=== PATIENT | male | born 1965 | race Caucasian/White ===

== ENCOUNTER 2016-10-13 16:22 | Outpatient (CLI) | payer MEDICARE ==
--- NOTE | 2016-10-13 19:47 | RAD ---
CHEST TWO VIEWS 10/13/16 Comparison is made with the 12/19/15 study. The heart is upper normal in size but no different than before. The lungs are clear. There is no sig n of pneumonia or pleural effusion. The trachea is midline and the mediastinum was unremarkable in appearance. The bony structures showed no acute change. IMPRESSION: Stable exam showing no acute findings. POS: HOME
== END 2016-10-13 16:23 | disposition home or self-care (01) ==
LOC: BURRAD 16:22
PROVIDERS: ATTEND Family Medicine
DX: G93.3 Postviral and related fatigue syndromes (principal)
CPT/HCPCS: 71020

== ENCOUNTER 2017-02-08 16:34 | Outpatient (CLI) | payer MEDICARE ==
[2017-02-08 17:30] LABS: #Basophils 0.1 thou/uL (0.0-0.2); #Eosinphils 0.3 thou/uL (0.0-0.7); #Lymphocytes 2.6 thou/uL (1.20-3.40); #Monocytes 0.8 thou/uL (0.11-0.59); #Neutrophils 8.8 thou/uL (1.40-6.50); %Eosinophils 2.6 % (0.0-10.0); %Lymphocytes 20.8 % (21.0-51.0); %Neutrophils 69.7 % (42.0-75.0); Hemoglobin 14.7 g/dL (14.0-18.0); Mean Corpuscular HGB CONC 33.5 g/dL (32.0-36.0); Mean Corpuscular Hemoglobin 29.9 pg (27.0-31.0); Mean Corpuscular Volume 89.2 fl (80.0-94.0); Mean Platelet Volume 7.6 fL (7.4-10.4); Platelet Count 332 thou/uL (130-400); RBC Distribution Width 12.6 % (11.5-14.5); Red Blood Cell (RBC) Count 4.92 mill/uL (4.70-6.10); White Blood Cell (WBC) Count 12.6 thou/uL (4.8-10.8)
[2017-02-08 17:46] LABS: Hemoglobin A1c 7.7 % (4.0-6.0)
[2017-02-08 17:50] LABS: ALT (SGPT) 24 U/L (8-55); AST (SGOT) 16 U/L (5-34); Albumin 4.5 g/dL (3.5-5.0); Alkaline Phosphatase 66 U/L (40-150); Anion Gap 16 mmol/L (10-20); BUN (Urea Nitrogen) 17 mg/dL (8.4-25.7); Bilirubin, Total 0.4 mg/dL (0.2-1.2); Calc. Creatinine Clearance 0 mL/min (70-130); Calcium 10.1 mg/dL (7.8-10.44); Carbon Dioxide 25 mmol/L (22-29); Chloride 100 mmol/L (98-107); Estimated GFR-MDRD Greater than 90; Glucose 113 mg/dL (70-105); Potassium 4.2 mmol/L (3.5-5.1); Protein, Total 7.5 g/dL (6.0-8.3); Sodium 137 mmol/L (136-145)
[2017-02-08 18:07] LABS: PSA-Asymptomatic (SCREENING) 0.37 ng/mL (0-4.0); Thyroid Stimulating Hormone 1.2481 uIU/mL (0.35-4.94)
[2017-02-09 18:46] LABS: Creatinine, Urine 58.58 mg/dL (63-166); Microalbumin Urine 5.2 mg/dL (0.5-50.0); Microalbumin/Creat Ratio 88.8 mg/g (Less than 30)
== END 2017-02-08 16:35 | disposition home or self-care (01) ==
LOC: HPCALD 16:34
PROVIDERS: ATTEND Family Medicine
DX: Z12.5 Encounter for screening for malignant neoplasm of prostate (principal); E11.9 Type 2 diabetes mellitus without complications; I10 Essential (primary) hypertension
CPT/HCPCS: 36415; 80053; 82043; 83036; 84443; 85025; G0103

== ENCOUNTER 2017-04-10 16:13 | Outpatient (CLI) | payer MEDICARE ==
[2017-04-10 18:26] LABS: Anion Gap 19 mmol/L (10-20); BUN (Urea Nitrogen) 20 mg/dL (8.4-25.7); Calc. Creatinine Clearance 0 mL/min (70-130); Calcium 9.8 mg/dL (7.8-10.44); Carbon Dioxide 24 mmol/L (22-29); Chloride 101 mmol/L (98-107); Estimated GFR-MDRD Greater than 90; Glucose 108 mg/dL (70-105); Potassium 4.5 mmol/L (3.5-5.1); Sodium 139 mmol/L (136-145)
== END 2017-04-10 16:14 | disposition home or self-care (01) ==
LOC: HPCALD 16:13
PROVIDERS: ATTEND Family Medicine
DX: R06.01 Orthopnea (principal)
CPT/HCPCS: 80048; 83880